=== PATIENT | female | born 1990 | race Caucasian/White ===

== ENCOUNTER → 2016-12-10 | Outpatient (REF) | payer BC, OTHER | LOC: M LAB REF 09:45 | PROVIDERS: ATTEND Physician Assistant Medical | DX: J02.9 Acute pharyngitis, unspecified (principal) ==

== ENCOUNTER → 2017-04-02 | Outpatient (REF) | payer BC, OTHER | LOC: M LAB REF 09:00 | DX: K52.9 Noninfective gastroenteritis and colitis, unspecified (principal) ==

== ENCOUNTER 2017-08-15 14:11 | Emergency (ER) | payer BC, OTHER ==
[~2017-08-15] VITALS: Ht 160 cm; Wt 69.1 kg
[2017-08-15 14:11] VITALS: BP 119/76
[2017-08-15] MEDS ORDERED: MEDR1VL IM (14:23)
[2017-08-15] MEDS ORDERED: IBUP-1022 PO (15:13)
[2017-08-15] MEDS ORDERED: CYCL10TA PO (15:13)
[2017-08-15] MEDS ORDERED: IBUPROFEN 800 MG TAB PO ONE (15:15)
== END 2017-08-15 15:31 | disposition home or self-care (01) ==
LOC: M ED 14:11
DX: S39.012A Strain of muscle, fascia and tendon of lower back, initial encounter (principal); X50.1XXA Overexertion from prolonged static or awkward postures, initial encounter; Y92.9 Unspecified place or not applicable; Y93.9 Activity, unspecified; Y99.0 Civilian activity done for income or pay; F17.200 Nicotine dependence, unspecified, uncomplicated; Z79.3 Long term (current) use of hormonal contraceptives

== ENCOUNTER → 2017-08-24 | Outpatient (REF) | payer BC ==
[~2017-08-24] MED LIST: CYCL10TA PO; IBUP-1022 PO; MEDR1VL IM
== END ==
LOC: M LAB REF 11:50
PROVIDERS: ATTEND Physician Assistant
DX: J06.9 Acute upper respiratory infection, unspecified (principal)

== ENCOUNTER 2018-04-02 18:58 | Emergency (ER) | payer MEDICAID, BC, SELFPAY ==
[2018-04-02] MEDS: ONDANSETRON 4MG/2ML VIAL (J2405) IV (19:30)
[2018-04-02] MEDS: NS 1,000 ML IV (19:30)
[2018-04-02] MEDS: MORPHINE 4 MG/ML 1ML VIAL/SYRINGE (J2270) IV (19:30)
[2018-04-02 19:33] LABS: HEMOGLOBIN 15.2 g/dl (12.0-15.5); MEAN CORPUSCULAR HEMOGLOBIN 31.1 pg (27.0-33.0); MEAN CORPUSCULAR HGB CONC 34.5 g/dl (32.0-36.5); PLATELET COUNT, AUTOMATED 397 10^3/uL (150-450); RED BLOOD COUNT 4.89 10^6/uL (4.00-5.40); WHITE BLOOD COUNT 14.3 10^3/uL (4.0-10.0)
[2018-04-02 19:38] LABS: ADD MANUAL DIFFER YES; DIFF SLIDE NUMBER 377; POSITIVE DIFF POS FLAG
[2018-04-02 19:53] LABS: CONTROL LINE HCG INT CTR LINE PRESENT; HCG, SERUM QUALITATIVE NEGATIVE (NEGATIVE)
[2018-04-02] MEDS: KETOROLAC 30 MG/ML VIAL (J1885) IV (19:53)
[2018-04-02 19:56] LABS: ALBUMIN 4.5 GM/DL (3.2-5.2); ALBUMIN/GLOBULIN RATIO 1.29 (1.00-1.93); ALKALINE PHOSPHATASE 89 U/L (45-117); ALT/SGPT 26 U/L (12-78); ANION GAP 8 MEQ/L (8-16); AST/SGOT 19 U/L (7-37); BILIRUBIN,DIRECT 0.2 MG/DL (0.0-0.2); BILIRUBIN,TOTAL 0.8 MG/DL (0.2-1.0); BLOOD UREA NITROGEN 11 MG/DL (7-18); CALCIUM LEVEL 9.9 MG/DL (8.5-10.1); CARBON DIOXIDE LEVEL 23 MEQ/L (21-32); CHLORIDE LEVEL 112 MEQ/L (98-107); CREATININE FOR GFR 1.14 MG/DL (0.55-1.30); GLOMERULAR FILTRATION RATE > 60.0 (>60); GLUCOSE, FASTING 93 MG/DL (70-100); LIPASE 92 U/L (73-393); SODIUM LEVEL 143 MEQ/L (136-145)
[2018-04-02 20:05] LABS: ATYPICAL LYMPH 2 % (0-5); EOSINOPHILS 2 % (0-5); LYMPHOCYTES 25 % (16-52); MONOCYTES 7 % (0-8); NEUTROPHILS 64 % (35-75)
[2018-04-02 20:06] LABS: PLATELET ESTIMATE NORMAL (NORMAL)
[2018-04-02 22:08] LABS: AMORPHOUS SEDIMENT RFX MODERATE (NEGATIVE); KETONE, URINE AUTO RFX 2+ mg/dL (NEGATIVE); LEUKOCYTE ESTERASE UR AUTO RFX NEGATIVE (NEGATIVE); MUCUS, URINE RFX MODERATE (NEGATIVE); NITRITE, URINE AUTO RFX NEGATIVE (NEGATIVE); RBC, URINE AUTO RFX 5 /HPF (0-3); SPECIFIC GRAVITY UR AUTO RFX 1.032 (1.002-1.035); SQUAM EPITHELIAL CELL UR AURFX 11 /HPF (0-6); WBC, URINE AUTO RFX 4 /HPF (0-3)
[2018-04-02] MEDS: CIPROFLOXACIN 500 MG TAB PO (22:22)
== END 2018-04-02 22:26 | disposition home or self-care (01) ==
LOC: M ED 18:58
DX: N30.01 Acute cystitis with hematuria (principal); N23 Unspecified renal colic; N13.30 Unspecified hydronephrosis; F17.210 Nicotine dependence, cigarettes, uncomplicated; Z88.8 Allergy status to other drugs, medicaments and biological substances; Z88.5 Allergy status to narcotic agent
CPT/HCPCS: J2270

== ENCOUNTER → 2019-01-08 | Outpatient (REF) | payer OTHER ==
[~2019-01-08] MED LIST changes: +CIPR-249 PO
[2019-01-08 16:39] LABS: INFLUENZA A AMPLIFICATION NEGATIVE (NEGATIVE); INFLUENZA B AMPLIFICATION NEGATIVE (NEGATIVE)
== END ==
LOC: M LAB REF 15:31
PROVIDERS: ATTEND Physician Assistant
DX: J11.1 Influenza due to unidentified influenza virus with other respiratory manifestations (principal)

== ENCOUNTER 2019-03-24 17:04 | Emergency (ER) | payer OTHER ==
[~2019-03-24] VITALS: Ht 160 cm; Wt 73.7 kg
[2019-03-24 21:07] VITALS: BP 123/91
[2019-03-24 22:14] LABS: CHLAMYDIA DNA AMPLIFICATION NEGATIVE (NEGATIVE); GC DNA AMPLIFICATION NEGATIVE (NEGATIVE)
== END 2019-03-24 21:20 | disposition home or self-care (01) ==
LOC: M ED 17:04
DX: N76.5 Ulceration of vagina (principal); Z86.19 Personal history of other infectious and parasitic diseases; Z87.59 Personal history of other complications of pregnancy, childbirth and the puerperium; J45.909 Unspecified asthma, uncomplicated; Z87.440 Personal history of urinary (tract) infections; Z87.442 Personal history of urinary calculi; Z87.448 Personal history of other diseases of urinary system; Z72.0 Tobacco use; F12.10 Cannabis abuse, uncomplicated; Z79.4 Long term (current) use of insulin; Z79.899 Other long term (current) drug therapy; Z88.5 Allergy status to narcotic agent; Z88.6 Allergy status to analgesic agent

== ENCOUNTER → 2019-04-22 | Outpatient (REF) | payer BC ==
[2019-04-22 20:25] LABS: AMORPHOUS SEDIMENT LARGE (NEGATIVE); APPEARANCE, URINE TURBID (CLEAR); BACTERIA, URINE AUTO NEGATIVE (NEGATIVE); BILIRUBIN, URINE AUTO NEGATIVE (NEGATIVE); BLOOD, URINE BLOOD NEGATIVE (NEGATIVE); COLOR, URINE YELLOW (YELLOW); GLUCOSE, URINE (UA) AUTO NEGATIVE (NEGATIVE); KETONE, URINE AUTO NEGATIVE (NEGATIVE); LEUKOCYTE ESTERASE, URINE AUTO NEGATIVE (NEGATIVE); MUCUS, URINE SMALL (NEGATIVE); NITRITE, URINE AUTO NEGATIVE (NEGATIVE); PROTEIN, URINE AUTO NEGATIVE (NEGATIVE); RBC, URINE AUTO 0 /HPF (0-3); SPECIFIC GRAVITY URINE AUTO 1.031 (1.002-1.035); SQUAMOUS EPITHELIAL CELL UR AU 6 /HPF (0-6); UROBILINOGEN, URINE AUTO 0.2 mg/dL (0.0-2.0); WBC, URINE AUTO 5 /HPF (0-3)
== END ==
LOC: M LAB REF 16:48
PROVIDERS: ATTEND Nurse Practitioner Family
DX: Z13.9 Encounter for screening, unspecified (principal)

== ENCOUNTER → 2019-04-22 | Outpatient (REF) | payer BC ==
[2019-04-22 18:14] LABS: BASO # 0.1 10^3/uL (0.0-0.2); BASO % 0.7 % (0.0-1.0); EOS # 0.2 10^3/uL (0.0-0.50); EOS % 2.3 % (0.0-3.0); HEMATOCRIT 47.9 % (36.0-47.0); HEMOGLOBIN 15.9 g/dl (12.0-15.5); LYMPH # 2.7 10^3/uL (1.5-6.5); LYMPH % 35.6 % (24.0-44.0); MEAN CORPUSCULAR HEMOGLOBIN 31.1 pg (27.0-33.0); MEAN CORPUSCULAR HGB CONC 33.2 g/dl (32.0-36.5); MEAN CORPUSCULAR VOLUME 93.6 fl (80.0-96.0); MONO # 0.6 10^3/uL (0.0-0.8); MONO % 7.6 % (0.0-5.0); NEUTROPHILS % 53.4 % (36.0-66.0); PLATELET COUNT, AUTOMATED 393 10^3/uL (150-450); RED BLOOD COUNT 5.12 10^6/uL (4.00-5.40); WHITE BLOOD COUNT 7.5 10^3/uL (4.0-10.0)
[2019-04-22 18:25] LABS: ALBUMIN 3.9 GM/DL (3.2-5.2); ALT/SGPT 33 U/L (12-78); BILIRUBIN,TOTAL 0.6 MG/DL (0.2-1.0); BLOOD UREA NITROGEN 10 MG/DL (7-18); CALCIUM LEVEL 9.9 MG/DL (8.5-10.1); CARBON DIOXIDE LEVEL 27 MEQ/L (21-32); CHLORIDE LEVEL 109 MEQ/L (98-107); CHOLESTEROL LEVEL 126 MG/DL (<200); CHOLESTEROL RISK RATIO 2.135 (<5); CREATININE FOR GFR 0.95 MG/DL (0.55-1.30); GLOMERULAR FILTRATION RATE > 60.0 (>60); GLUCOSE, FASTING 82 MG/DL (70-100); HDL CHOLESTEROL 59 MG/DL (>40); LDL CHOLESTEROL 56 MG/DL (<100); NON-HDL-C 67 MG/DL; POTASSIUM SERUM 4.1 MEQ/L (3.5-5.1); SODIUM LEVEL 141 MEQ/L (136-145); TOTAL 25(OH) VITAMIN D 24.2 NG/ML (30.0-100.0); TOTAL PROTEIN 7.6 GM/DL (6.4-8.2); TRIGLYCERIDES LEVEL 56 MG/DL (<150)
[2019-04-22 19:02] LABS: HEMOGLOBIN A1c 5.2 %
== END ==
LOC: M LAB REF 17:25
PROVIDERS: ATTEND Nurse Practitioner Family
DX: Z13.9 Encounter for screening, unspecified (principal)

== ENCOUNTER 2019-06-11 16:39 | Emergency (ER) | payer BC ==
[~2019-06-11] VITALS: Ht 160 cm; Wt 73.7 kg
[2019-06-11] MEDS ORDERED: BUPR150T3 (16:48)
[2019-06-11] MEDS ORDERED: NS 1,000 ML IV ONE (17:30)
[2019-06-11] MEDS ORDERED: KETOROLAC 30 MG/ML VIAL (J1885) IV ONE (17:30)
[2019-06-11] MEDS ORDERED: ONDANSETRON 4MG/2ML VIAL (J2405) IV ONE (17:30)
[2019-06-11 17:46] LABS: BASO # 0.1 10^3/uL (0.0-0.2); BASO % 0.5 % (0.0-1.0); EOS # 0.2 10^3/uL (0.0-0.50); EOS % 2.6 % (0.0-3.0); HEMATOCRIT 41.4 % (36.0-47.0); HEMOGLOBIN 13.9 g/dl (12.0-15.5); LYMPH # 3.3 10^3/uL (1.5-6.5); LYMPH % 36.3 % (24.0-44.0); MEAN CORPUSCULAR HEMOGLOBIN 30.1 pg (27.0-33.0); MEAN CORPUSCULAR HGB CONC 33.6 g/dl (32.0-36.5); MEAN CORPUSCULAR VOLUME 89.6 fl (80.0-96.0); MONO # 0.6 10^3/uL (0.0-0.8); MONO % 6.4 % (0.0-5.0); NEUTROPHILS # 4.9 10^3/uL (1.8-7.7); NEUTROPHILS % 53.9 % (36.0-66.0); PLATELET COUNT, AUTOMATED 415 10^3/uL (150-450); RED BLOOD COUNT 4.62 10^6/uL (4.00-5.40); WHITE BLOOD COUNT 9.1 10^3/uL (4.0-10.0)
[2019-06-11 18:09] LABS: ALBUMIN 3.9 GM/DL (3.2-5.2); ALT/SGPT 28 U/L (12-78); BILIRUBIN,DIRECT < 0.1 MG/DL (0.0-0.2); BILIRUBIN,TOTAL 0.2 MG/DL (0.2-1.0); LIPASE 102 U/L (73-393); TOTAL PROTEIN 7.6 GM/DL (6.4-8.2)
[2019-06-11] MEDS ORDERED: ISOVUE-370 76% 100ML VIAL (Q9967) As Ordered ONE (18:43)
--- NOTE | 2019-06-11 19:19 | REPVR ---
EXAM: CT Abdomen and Pelvis With Contrast EXAM DATE/TIME: 06/11/2019 6:54 PM CLINICAL HISTORY: 29 years old, female; Abdominal pain; Additional info: Right abd pain TECHNIQUE: Imaging protocol: Axial computed tomography images of the abdomen and pelvis with intravenous contrast. Coronal and sagittal reformatted images were created and reviewed. Radiation optimization: All CT scans at this facility use at least one of these dose optimization techniques: automated exposure control; mA and/or kV adjustment per patient size (includes targeted exams where dose is matched to clinical indication); or iterative reconstruction. Contrast material: ISO 370;Contrast volume: 100 ml;Contrast route: IV; COMPARISON: CT ABD PELVIS W/O CONTRAST 04/02/2018 8:08 PM FINDINGS: Liver: Unremarkable. No mass. Gallbladder and bile ducts: Unremarkable. No calcified stones. No ductal dilation. Pancreas: Unremarkable. No ductal dilation. Spleen: Unremarkable. No splenomegaly. Adrenals: Normal. No mass. Kidneys and ureters: Unremarkable. No stones. No hydronephrosis. Stomach and bowel: Mild colonic diverticulosis is present. There are inflammatory changes within the fat adjacent to a diverticulum within the ascending colon on axial images 68 through 76 of series 201 consistent with acute diverticulitis. The stomach and small bowel have normal appearances. Appendix: The appendix is normal. Intraperitoneal space: Unremarkable. No free air. No significant fluid collection. Vasculature: Unremarkable. No abdominal aortic aneurysm. Lymph nodes: Unremarkable. No enlarged lymph nodes. Bladder: Unremarkable as visualized. Reproductive: Unremarkable as visualized. Bones/joints: No acute fracture. Soft tissues: Unremarkable. IMPRESSION: Mild acute diverticulitis of the ascending colon. Electronically signed by: Saúl Bowles On 06/11/2019 19:19:45 PM
[2019-06-11] MEDS ORDERED: FLAG500T PO (19:37)
[2019-06-11] MEDS ORDERED: CIPR-249 PO (19:37)
[2019-06-11] MEDS ORDERED: CIPROFLOXACIN 500 MG TAB PO ONE (19:45)
[2019-06-11] MEDS ORDERED: metroNIDAZOLE (FLAGYL) 500 MG TAB PO ONE (19:45)
[2019-06-11 19:58] VITALS: BP 146/88
== END 2019-06-11 20:04 | disposition home or self-care (01) ==
LOC: M ED 16:39
DX: K57.32 Diverticulitis of large intestine without perforation or abscess without bleeding (principal); R11.2 Nausea with vomiting, unspecified; M54.9 Dorsalgia, unspecified; Z87.442 Personal history of urinary calculi; Z88.5 Allergy status to narcotic agent; Z88.6 Allergy status to analgesic agent; F17.210 Nicotine dependence, cigarettes, uncomplicated; Z79.899 Other long term (current) drug therapy
CPT/HCPCS: 74177; 80047; 80076; 81001; 83690; 84702; 85025; 96374; 96375; 99284; J1885; J2405; Q9967

== ENCOUNTER → 2019-08-13 | Outpatient (REF) | payer BC ==
[~2019-08-13] MED LIST changes: +BUPR150T3; +FLAG500T PO
[2019-08-16 14:07] LABS: HPV HYBRID CAPTURE II Negative (Negative)
== END ==
LOC: M SFHCADAM 13:35
PROVIDERS: ATTEND Physician Assistant
DX: Z12.4 Encounter for screening for malignant neoplasm of cervix (principal); R87.610 Atypical squamous cells of undetermined significance on cytologic smear of cervix (ASC-US)

== ENCOUNTER → 2019-12-16 | Outpatient (CLI) | payer BC ==
--- NOTE | 2019-12-16 11:17 | REPPI ---
Clinical: Dyspnea . Comparison: 02/06/2011 . Technique: PA and lateral. Findings: The mediastinum and cardiac silhouette are normal. The lung virk are clear and without acute consolidation, effusion, or pneumothorax. The skeletal structures are intact and normal. Impression: 1. No acute cardiopulmonary process. Electronically Signed by Gurvinder Crump MD 12/16/2019 11:08 A
== END ==
LOC: M PLAIMG 09:06
PROVIDERS: ATTEND Nurse Practitioner Family
DX: R06.00 Dyspnea, unspecified (principal)

== ENCOUNTER → 2020-01-05 | Outpatient (REF) | payer BC ==
[~2020-01-05] MED LIST changes: +ALBU83IN INH; +EFFE75CA2 PO; +MULTCAP PO; +PROAAER10 INH; +TRAM50TA2 PO; +ZOFR4TAB16 PO
[2020-01-05 13:54] LABS: ALBUMIN 4.4 GM/DL (3.2-5.2); ALT/SGPT 20 U/L (12-78); BILIRUBIN,TOTAL 0.7 MG/DL (0.2-1.0); BLOOD UREA NITROGEN 9 MG/DL (7-18); CARBON DIOXIDE LEVEL 29 MEQ/L (21-32); CHLORIDE LEVEL 106 MEQ/L (98-107); GLOMERULAR FILTRATION RATE > 60.0 (>60); GLUCOSE, FASTING 76 MG/DL (70-100); POTASSIUM SERUM 4.2 MEQ/L (3.5-5.1); SODIUM LEVEL 139 MEQ/L (136-145); TOTAL PROTEIN 7.5 GM/DL (6.4-8.2)
[2020-01-05 13:55] LABS: BASO % 0.3 % (0.0-1.0); EOS # 0.1 10^3/uL (0.0-0.5); EOS % 0.6 % (0.0-3.0); HEMATOCRIT 44.9 % (36.0-47.0); HEMOGLOBIN 14.8 g/dl (12.0-15.5); LYMPH # 3.1 10^3/uL (1.5-5.0); LYMPH % 25.8 % (24.0-44.0); MEAN CORPUSCULAR HEMOGLOBIN 30.7 pg (27.0-33.0); MEAN CORPUSCULAR VOLUME 93.2 fl (80.0-96.0); MONO # 0.6 10^3/uL (0.0-0.8); NEUTROPHILS # 8.2 10^3/uL (1.5-8.5); PLATELET COUNT, AUTOMATED 406 10^3/uL (150-450); RED BLOOD COUNT 4.82 10^6/uL (4.00-5.40)
== END ==
LOC: M SFHCADAM 11:45
PROVIDERS: ATTEND Family Medicine
DX: Z01.818 Encounter for other preprocedural examination (principal)

== ENCOUNTER 2020-01-06 05:47 | Observation (INO) | payer BC ==
[~2020-01-06] VITALS: Ht 157.5 cm; Wt 67.1 kg
[2020-01-06] VITALS (9 sets, daily range): BP systolic 110–135; BP diastolic 63–74
[~2020-01-06 05:47] MED LIST changes: -TRAM50TA2 PO; -ZOFR4TAB16 PO
[2020-01-06] MEDS ORDERED: LIDOCAINE 1% MDV 20ML VIAL SQ PRN (06:00)
[2020-01-06] MEDS ORDERED: fentaNYL 250 MCG/5 ML INJECTION (J3010) As Ordered ONE (07:12)
[2020-01-06] MEDS ORDERED: dexameTHASONE 4 MG/ML 1ML VIAL (J1100) As Ordered ONE (07:13)
[2020-01-06] MEDS ORDERED: propofoL 200 MG/20 ML VIAL As Ordered ONE ×3 (07:13→09:22)
[2020-01-06] MEDS ORDERED: ONDANSETRON 4MG/2ML VIAL (J2405) As Ordered ONE (07:13)
[2020-01-06] MEDS ORDERED: ROCURONIUM BROMIDE 50 MG/5 ML VIAL As Ordered ONE ×2 (07:13→08:08)
[2020-01-06] MEDS ORDERED: LIDOCAINE 2% INJ 100 MG/5 ML SDV (FOR ANES.) As Ordered ONE (07:13)
[2020-01-06] MEDS ORDERED: MIDAZOLAM INJ 2 MG/2 ML VIAL (J2250) As Ordered ONE (07:13)
[2020-01-06] MEDS ORDERED: BUPIVACAINE LIPOSOME/PF 1.3% 20ML VIAL (13.3MG/ML)(EXPAREL)(C9290 PER1MG) As Ordered ONE (07:19)
[2020-01-06] MEDS ORDERED: BACITRACIN PWD 50,000 UNITS VIAL As Ordered ONE (07:19)
[2020-01-06] MEDS ORDERED: ceFAZolin SOD 1 GM in D5W MINI-BAG PLUS 50 ML IV ONE (07:30)
[2020-01-06] MEDS ORDERED: LR 1,000 ML IV ONE (07:30)
[2020-01-06] MEDS ORDERED: ceFAZolin 1GM INJ (J0690 PER 500MG) As Ordered ONE (07:47)
[2020-01-06] MEDS ORDERED: HYDROmorphone HCL 2 MG/ML 1ML VIAL (J1170) As Ordered ONE (08:08)
[2020-01-06] MEDS ORDERED: ePHEDrine SULFATE 25 MG/5 ML(5MG/ML) SYRINGE As Ordered ONE (08:08)
[2020-01-06] MEDS ORDERED: PHENYLephrine HCL 500 MCG/5 ML (100MCG/ML) SYRINGE (J2370) As Ordered ONE (08:08)
[2020-01-06] MEDS ORDERED: KETAMINE HCL 200 MG/20 ML VIAL As Ordered ONE (08:19)
[2020-01-06] MEDS ORDERED: GLYCOPYRROLATE INJ 0.2 MG/ML 2 ML VIAL As Ordered ONE (08:29)
[2020-01-06] MEDS ORDERED: SUGAMMADEX SODIUM 500 MG/5 ML VIAL (BRIDION) As Ordered ONE (10:22)
--- NOTE | 2020-01-06 11:27 | POST-OPPD ---
Postoperative Procedure Note Date Of Procedure: Jan 06, 2020 PREOPERATIVE DIAGNOSIS: Bilateral breast hypertrophy POSTOPERATIVE DIAGNOSIS: same FINDINGS: Large breasts PROCEDURE: Bilateral breast reduction SURGEON: Dr Best CARDIOVASCULAR RN: Dr Turner ANESTHESIA: General SPECIMENS: Right breast 503 gm, Left breast 619 gm ESTIMATED BLOOD LOSS: 75cc REPLACED: none DRAINS: 10 mm MOUNIKA drains x 2 COMPLICATIONS: none POSTOPERATIVE CONDITION: stable BRANT BEST DO Jan 06, 2020 11:27
[2020-01-06] MEDS ORDERED: ALBUTEROL 90 MCG/ACT 8GM HFA INHALER INH PRN ×2 (11:45→14:07)
[2020-01-06] MEDS ORDERED: fentaNYL 100 MCG/2 ML INJECTION (J3010) IV PRN ×2 (12:00→13:45)
[2020-01-06] MEDS ORDERED: oxyCODONE 5MG TAB PO PRN ×2 (12:00→13:45)
[2020-01-06] MEDS ORDERED: LR 1,000 ML IV SCH ×2 (12:00→13:45)
[2020-01-06] MEDS ORDERED: HYDROMORPHONE HCL 0.5 MG/ 0.5 ML SYRINGE (J1170 PER 1) IV PRN ×2 (12:00→13:45)
[2020-01-06] MEDS ORDERED: ONDANSETRON 4MG/2ML VIAL (J2405) IV PRN ×2 (12:00→13:45)
--- NOTE | 2020-01-06 12:29 | ROOPDOC ---
[facility] Report Of Operation Report of Operation DATE OF PROCEDURE: 01/06/2020 PREOPERATIVE DIAGNOSIS: Symptomatic macromastia. POSTOPERATIVE DIAGNOSIS: Symptomatic macromastia. PROCEDURE: Bilateral breast reduction. ATTENDING SURGEON: Tuyet Best DO ANESTHESIA: General. FINDINGS: Large breasts. SPECIMEN: Right breast 503 grams, left breast 619 grams. BLOOD LOSS: 75 mL. DRAIN: 10 mm Addi-Herrera x 2. COMPLICATIONS: No complications. POST OP CONDITION: Stable. DISPOSITION: Recovery room. DESCRIPTION OF PROCEDURE: This is a 29-year-old female who has large breasts, which cause a patient significant upper back and neck pain. She has failed medical management with support bras and medications. The patient is a good candidate for surgical breast reduction. All the risks and benefits and alternatives discussed with the patient at [facility]. Risks associated with this procedure include but not limited to: bleeding, infection, delayed healing, damage of surrounding structures, asymmetry, tissue loss, nipple areolar loss/change of sensation, inability to breast feed, inacceptable cosmetic results, DVT, and PE. The day of surgery, she was marked according to Superior - medial pedicle pattern in the upright position in preoperative holding area. Her measurements from sternal notch on Left side is 33-1/2 cm and on the Right side it is to 33- 1/2 cm from sternal notch and her new position for the nipple areola complex is going to be at 22 cm bilaterally. After the markings an informed consent was confirmed. The patient was brought into the operating room, placed in supine position. Preoperative antibiotics were given. Sequential pneumatic stockings were placed on her lower calves. General anesthesia was induced. She was prepped and draped in the usual sterile fashion. We started our procedure on the right side. We outlined the nipple areolar complex at 42 mm in diameter. Incision was carried out around the nipple areolar complex and along the markings according the superior -medial pedicle pattern. PEAK cautery and electrocautery were used for resection of the inferolateral portion of the breast. Hemostasis was obtained using electrocautery as well. Specimen sent off to be weight. After that part of procedure completed, the wound was irrigated with Bacitracin saline solution. The pedicle was de- epithelialized using Thakkar scissors. Exparel was infiltrated in breast parenchyma and Pectoralis major totaling 7 ml. Then, the pedicle was turned superiorly to its new location. The breast mound was recreated. #0 Vicryl sutures were used to secure the mound. The side pillars were closed with inte rrupted #3-0 Monocryl sutures. The vertical limb is 8 cm. Inferior excess tissue was measured and resected creating the inferior horizontal scar. A 10 mm Addi-Herrera drain was placed through the lateral portion of that incision and sutured in place with #3-0 Monocryl suture. Horizontal scar was closed with interrupted #3-0 Monocryl sutures. Nipple areolar complex was brought out into view through the new opening. We used interrupted #3-0 Monocryl, #4-0 Monocryl sutures to close it in layers and a #5-0 Plain Gut running stitch for dermis. Total dissection on the right side was 503 grams. Additional suction assisted lipectomy done at the upper outer quadrant, totalling 50 cc to even out the contour. Exparel added to the skin, 3 cc. Then, we turned our attention to the left side. A mirrored procedure was recreated. We outlined the nipple areolar complex at 42 mm in diameter. Incision was carried out around the nipple areolar complex and along the markings according the superior -medial pedicle pattern. P EAK cautery and electrocautery were used for resection of the inferolateral portion of the breast. Hemostasis was obtained using electrocautery as well. Specimen sent off to be weight. After that part of procedure completed, the wound was irrigated with Bacitracin saline solution. The pedicle was de- epithelialized using Thakkar scissors. Exparel was infiltrated in breast parenchyma and Pectoralis major totaling 7 ml. Then, the pedicle was turned superiorly to its new location. The breast mound was recreated. #0 Vicryl sutures were used to secure the mound. The side pillars were closed with interrupted #3-0 Monocryl sutures. The vertical limb is 8 cm. Inferior excess tissue was measured and resected creating the inferior horizontal scar. A 10 mm Addi-Herrera drain was placed through the lateral portion of that incision and sutured in place with #3-0 Monocryl suture. Horizontal scar was closed with interrupted #3-0 Monocryl sutures. Nipple areolar complex was brought out into view through the new opening. We used interrupted #3-0 Monocryl, #4-0 Monocryl sutures to close it in layers and a #5-0 Plain Gut running stitch for dermis. Total dissection on the right side was 619 grams. Additional suction assisted lipectomy done at the upper outer quadrant, totalli ng 50 cc to even out the contour. Exparel added to the skin, 3 cc. Prineo dressing, Xeroform to the nipple areolar complex, bulky dressing and a surgical bra the patient was extubated in operating room without any difficulty, transferred to the recovery room in stable condition. TUYET BEST DO Jan 06, 2020 12:29
[2020-01-06] MEDS: traMADol 50 MG TAB PO PRN ×2 (12:30→23:46)
[2020-01-06] MEDS ORDERED: METOCLOPRAMIDE INJ 10MG/2ML VIAL (J2765) As Ordered ONE (13:39)
[2020-01-06] MEDS ORDERED: METOCLOPRAMIDE INJ 10MG/2ML VIAL (J2765) IV PRN (13:45)
[2020-01-06] MEDS: LR 1,000 ML IV SCH (15:37)
[2020-01-06] MEDS: VENLAFAXINE **XR** 75MG CAPSULE PO SCH (15:53)
[2020-01-06] MEDS: KETOROLAC TROMETHAMINE 10 MG TAB PO PRN (18:05)
[2020-01-06] MEDS: ONDANSETRON 4MG/2ML VIAL (J2405) IV PRN ×2 (19:13→23:46)
[2020-01-07 02:09] VITALS: BP 111/74
[2020-01-07] MEDS: LR 1,000 ML IV SCH (02:11)
[2020-01-07] MEDS: KETOROLAC TROMETHAMINE 10 MG TAB PO PRN ×2 (02:12→10:05)
[2020-01-07 05:33] VITALS: BP 105/54
[2020-01-07 07:55] VITALS: BP 138/64
[2020-01-07] MEDS ORDERED: traMADol 50 MG TAB PO PRN (08:00)
[2020-01-07] MEDS: VENLAFAXINE **XR** 75MG CAPSULE PO SCH (09:40)
[2020-01-07] MEDS: ONDANSETRON 4MG/2ML VIAL (J2405) IV PRN (10:02)
[2020-01-07] MEDS: traMADol 50 MG TAB PO PRN (10:02)
--- NOTE | 2020-01-07 11:37 | IPNPDOC ---
Subjective General Date Seen: Jan 07, 2020 Subject Chief Complaint/History The patient is a 29-year-old female admitted with a reason for visit of Bilateral Breast Hypertrophy. S/p BBR POD 1. Doing well. Pain controlled with Tramadol, but with nausea. Using Zofran. No other complains. Current Medications Current Medications Current Medications Medications (Trade) Dose Ordered Sig/Kwame Route PRN Reason Start Time Stop Time Status Last Admin Dose Admin Albuterol Sulfate (Proventil, Ventolin Hfa) 2 puff Q4HP PRN INH SHORTNESS OF BREATH 01/06/20 11:45 01/06/20 14:07 DC Albuterol Sulfate (Proventil, Ventolin Hfa) 2 puff RQ4H PRN INH SHORTNESS OF BREATH 01/06/20 14:07 Fentanyl Citrate (Sublimaze) 25 mcg Q5MP PRN IV PAIN LEVEL 5-10 01/06/20 12:00 01/06/20 13:00 DC Fentanyl Citrate (Sublimaze) 25 mcg Q5MP PRN IV PAIN LEVEL 5-10 01/06/20 13:45 01/06/20 14:45 DC Hydromorphone HCl (Dilaudid) 0.2 mg Q5MP PRN IV PAIN LEVEL 4-7 01/06/20 12:00 01/06/20 13:00 DC Hydromorphone HCl (Dilaudid) 0.2 mg Q5MP PRN IV PAIN LEVEL 4-7 01/06/20 13:45 01/06/20 14:45 DC Ketorolac Tromethamine (ToRADol) 10 mg Q6HP PRN PO MODERATE PAIN (PS 5-7) 01/06/20 11:30 01/11/20 11:29 01/07/20 10:05 Lactated Ringer's 1,000 ml @ 75 mls/hr [id number] IV 01/06/20 11:28 01/07/20 02:11 Lactated Ringer's 1,000 ml @ 100 mls/hr Q10H IV 01/06/20 12:00 01/06/20 13:00 DC Lactated Ringer's 1,000 ml @ 100 mls/hr Q10H IV 01/06/20 13:45 01/06/20 14:45 DC Lidocaine HCl (LIDOCAINE 1% MDV 20ml) 0.1 ml ONCE PRN SQ DISCOMFORT BEFORE IV START 01/06/20 06:00 01/06/20 11:59 DC Metoclopramide HCl (REGLAN INJection) 10 mg Q6HP PRN IV NAUSEA OR VOMITING 01/06/20 13:45 01/06/20 14:45 DC 01/06/20 13:40 Ondansetron HCl (ZOFRAN INJection) 4 mg Q4H PRN IV NAUSEA OR VOMITING 01/06/20 11:30 01/07/20 10:02 Ondansetron HCl (ZOFRAN INJection) 4 mg Q4HP PRN IV NAUSEA OR VOMITING 01/06/20 12:00 01/06/20 13:00 DC 01/06/20 12:01 Ondansetron HCl (ZOFRAN INJection) 4 mg Q4HP PRN IV NAUSEA OR VOMITING 01/06/20 13:45 01/06/20 14:45 DC Oxycodone HCl (Roxicodone, Oxyir) 5 mg ASDIRECTED PRN PO PAIN LEVEL 1-4 01/06/20 12:00 01/06/20 13:00 DC Oxycodone HCl (Roxicodone, Oxyir) 5 mg ASDIRECTED PRN PO PAIN LEVEL 1-4 01/06/20 13:45 01/06/20 14:45 DC Tramadol HCl (Ultram) 50 mg Q6HP PRN PO MODERATE PAIN (PS 5-7) 01/06/20 11:45 01/07/20 10:02 Tramadol HCl (Ultram) 100 mg Q6HP PRN PO SEVERE PAIN (PS 8-10) 01/07/20 08:00 Venlafaxine HCl (Effexor Xr) 75 mg DAILY PO 01/06/20 09:00 01/07/20 09:40 Allergies Coded Allergies: acetaminophen (Verified Adverse Reaction, Intermediate, HEART PALPITATIONS; CHEST PAINS, 12/29/19) hydrocodone (Verified Adverse Reaction, Intermediate, HEART PALPITATIONS; CHEST PAINS, 12/29/19) Objective Physical Examination Examination GENERAL APPEARANCE:Patient seen, laying in bed, awake, alert, and oriented. Comfortable, in no acute distress. SKIN: Warm and moist. BREAST: Right and left soft, non-tender incisions intact. MOUNIKA drains: R15/L25 cc/24 hr. NAC: Viable, warm, symmetrical, mild post-op ecchymosis, no expanding hematoma. LUNGS: Clear to auscultation bilaterally. No wheezing appreciated. HEART: No chest wall abnormalities. Regular rate and rhythm with no murmurs appreciated. ABDOMEN: Abdomen is soft, non-tender, non-distended. EXTREMITIES: No edema identified. No calf tenderness. Vital Signs Vital Signs Date Time Temp Pulse Resp B/P (MAP) Pulse Ox O2 Delivery O2 Flow Rate FiO2 01/07/20 11:00 18 01/07/20 07:55 97.9 91 138/64 (88) 98 Room Air 01/06/20 12:30 3 I&Os I&O- Last 24 Hours up to 6 AM 01/07/20 06:00 Intake Total 2680 ml Output Total 268 ml Balance 2412 ml Impression S/p Breast reduction POD 1. Stable for discharge. Monitor drains at home No heavy lifting. F/up plastic surgery Sunday. Instructions given to patient. Plan / VTE VTE Prophylaxis Ordered?: Yes BRANT BEST DO Jan 07, 2020 11:37
[2020-01-07] MEDS ORDERED: TRAM50TA2 PO (11:44)
[2020-01-07] MEDS ORDERED: ZOFR4TAB16 PO (11:44)
== END 2020-01-07 13:00 | disposition home or self-care (01) ==
LOC: M SDC 05:47 → M MS5PR 11:28
PROVIDERS: ADMIT Plastic Surgery Surgery of the Hand; ATTEND Plastic Surgery Surgery of the Hand
DX: N62 Hypertrophy of breast (principal); J45.909 Unspecified asthma, uncomplicated; F17.218 Nicotine dependence, cigarettes, with other nicotine-induced disorders; Z88.5 Allergy status to narcotic agent; Z88.8 Allergy status to other drugs, medicaments and biological substances; Z79.899 Other long term (current) drug therapy
CPT/HCPCS: 19318; 81025; 88305; 96374; 96376; C9290; J0690; J1100; J1170; J2250; J2370; J2405; J2765; J3010

== ENCOUNTER → 2020-02-17 | Outpatient (CLI) | payer BC ==
[~2020-02-17] MED LIST changes: +CYCL-707 PO; -CYCL10TA PO; +METHACHOLINE KIT (J7674) INH ONE; +TRAM50TA2 PO; +ZOFR4TAB16 PO
--- NOTE | 2020-02-17 15:18 | PFTRPT ---
Height: 62.00 Inches Weight: 151.00 Lbs BSA: 1.70 Diagnosis: R05 DATE OF PROCEDURE: 02/17/2020 ORDERED BY: Stephanie Flores INTERPRETATION: Study of excellent technical quality. Under protocol, methacholine was administered. At a dose of 0.25 mg or 1.375 CDUs, a 22% decline in the FEV1 was noted. PC of 0.14 is significant. Flow rates did return to baseline post bronchodilator administration. IMPRESSION: Positive methacholine challenge study. MTDD
== END ==
LOC: M CARPUL 14:41
PROVIDERS: ATTEND Nurse Practitioner Family
DX: R05 Cough (principal)
CPT/HCPCS: 94070; 95070; J7674

== ENCOUNTER → 2020-06-22 | Outpatient (REF) | payer BC ==
[~2020-06-22] MED LIST changes: -METHACHOLINE KIT (J7674) INH ONE
== END ==
LOC: M LAB REF 11:02
PROVIDERS: ATTEND Physician Assistant
DX: R42 Dizziness and giddiness (principal)

== ENCOUNTER → 2022-02-17 | Outpatient (REF) | payer BC ==
[~2022-02-17] MED LIST changes: +BUPR150T12; -BUPR150T3
== END ==
LOC: M LAB REF 13:44
PROVIDERS: ATTEND Physician Assistant
DX: R50.9 Fever, unspecified (principal); R05.9 Cough, unspecified

== ENCOUNTER → 2022-07-19 | Outpatient (REF) | payer BC ==
[~2022-07-19] MED LIST changes: +ALBU2.5V10 INH; -ALBU83IN INH
== END ==
LOC: M LAB REF 15:56
PROVIDERS: ATTEND Physician Assistant
DX: M79.10 Myalgia, unspecified site (principal)

== ENCOUNTER → 2022-10-20 | Outpatient (REF) | payer BC ==
[2022-10-20 17:58] LABS: BASO # 0.1 10^3/uL (0.0-0.2); BASO % 0.7 % (0.0-1.0); EOS # 0.2 10^3/uL (0.0-0.5); EOS % 2.4 % (0.0-3.0); HEMATOCRIT 44.4 % (36.0-47.0); HEMOGLOBIN 14.4 g/dl (12.0-15.5); LYMPH # 2.6 10^3/uL (1.5-5.0); LYMPH % 36.1 % (24.0-44.0); MEAN CORPUSCULAR HEMOGLOBIN 29.3 pg (27.0-33.0); MEAN CORPUSCULAR HGB CONC 32.4 g/dl (32.0-36.5); MEAN CORPUSCULAR VOLUME 90.4 fl (80.0-96.0); MONO # 0.5 10^3/uL (0.0-0.8); MONO % 7.1 % (2.0-8.0); NEUTROPHILS # 3.9 10^3/uL (1.5-8.5); NEUTROPHILS % 53.4 % (36.0-66.0); PLATELET COUNT, AUTOMATED 374 10^3/uL (150-450); RED BLOOD COUNT 4.91 10^6/uL (4.00-5.40); WHITE BLOOD COUNT 7.2 10^3/uL (4.0-10.0)
[2022-10-20 18:46] LABS: FREE T4 0.98 NG/DL (0.89-1.76); THYROID STIMULATING HORMONE 2.665 uIU/ML (0.55-4.78)
[2022-10-20 18:51] LABS: HEPATITIS B SURFACE ANTIBODY NEGATIVE (POSITIVE)
[2022-10-23 16:08] LABS: HERPES ZOSTER, VARICELLA IgG 2152 index (Immune >165); RUBEOLA IgG ANTIBODY <13.5 AU/mL (Immune >16.4)
== END ==
LOC: M LAB REF 17:10
PROVIDERS: ATTEND Nurse Practitioner Family
DX: Z02.1 Encounter for pre-employment examination (principal); E04.1 Nontoxic single thyroid nodule

== ENCOUNTER → 2022-10-31 | Outpatient (REF) | payer BC ==
[2022-10-31 17:53] LABS: BASO # 0.1 10^3/uL (0.0-0.2); BASO % 0.8 % (0.0-1.0); EOS # 0.2 10^3/uL (0.0-0.5); HEMATOCRIT 46.2 % (36.0-47.0); HEMOGLOBIN 14.8 g/dl (12.0-15.5); LYMPH # 3.4 10^3/uL (1.5-5.0); LYMPH % 39.9 % (24.0-44.0); MEAN CORPUSCULAR VOLUME 90.6 fl (80.0-96.0); MONO # 0.6 10^3/uL (0.0-0.8); MONO % 6.6 % (2.0-8.0); NEUTROPHILS # 4.4 10^3/uL (1.5-8.5); NEUTROPHILS % 50.4 % (36.0-66.0); PLATELET COUNT, AUTOMATED 450 10^3/uL (150-450); WHITE BLOOD COUNT 8.6 10^3/uL (4.0-10.0)
[2022-10-31 18:22] LABS: BLOOD UREA NITROGEN 12 MG/DL (9-23); CALCIUM LEVEL 9.6 MG/DL (8.5-10.1); CARBON DIOXIDE LEVEL 28 MMOL/L (20-31); CHLORIDE LEVEL 105 MMOL/L (98-107); CREATININE FOR GFR 0.77 MG/DL (0.55-1.30); GLOMERULAR FILTRATION RATE > 60.0 (>60); GLUCOSE, FASTING 77 MG/DL (60-100); SODIUM LEVEL 140 MMOL/L (136-145)
[2022-10-31 18:33] LABS: HCG, SERUM QUALITATIVE NEGATIVE (NEGATIVE)
== END ==
LOC: M LAB REF 17:17
PROVIDERS: ATTEND Nurse Practitioner Family
DX: R11.2 Nausea with vomiting, unspecified (principal)

== ENCOUNTER → 2022-11-01 | Outpatient (REF) | payer BC | LOC: M LAB REF 09:40 | PROVIDERS: ATTEND Nurse Practitioner Family | DX: R19.7 Diarrhea, unspecified (principal) ==

== ENCOUNTER → 2022-11-02 | Outpatient (CLI) | payer BC | LOC: M WHC 09:39 | PROVIDERS: ATTEND Nurse Practitioner Family | DX: Z12.31 Encounter for screening mammogram for malignant neoplasm of breast (principal); Z80.3 Family history of malignant neoplasm of breast ==

== ENCOUNTER → 2022-11-23 | Outpatient (CLI) | payer BC | LOC: M WHC 08:14 | PROVIDERS: ATTEND Nurse Practitioner Family | DX: R92.8 Other abnormal and inconclusive findings on diagnostic imaging of breast (principal); N63.13 Unspecified lump in the right breast, lower outer quadrant; N63.11 Unspecified lump in the right breast, upper outer quadrant; N63.22 Unspecified lump in the left breast, upper inner quadrant ==

== ENCOUNTER → 2023-05-10 | Outpatient (REF) | payer BC | LOC: M LAB REF 16:19 | PROVIDERS: ATTEND Physician Assistant | DX: M25.50 Pain in unspecified joint (principal) ==

== ENCOUNTER → 2023-09-14 | Outpatient (REF) | payer BC | LOC: M LAB REF 11:40 | PROVIDERS: ATTEND Nurse Practitioner Family | DX: J02.9 Acute pharyngitis, unspecified (principal) ==

== ENCOUNTER 2023-12-04 12:28 | Outpatient (RCR) | payer BC | END 2023-12-05 | LOC: M PT 12:28 | PROVIDERS: ATTEND Physician Assistant | DX: H92.01 Otalgia, right ear (principal) ==

== ENCOUNTER 2023-12-27 08:13 | Outpatient (RCR) | payer BC | END 2024-01-03 | LOC: M PT 08:13 | PROVIDERS: ATTEND Physician Assistant | DX: H92.01 Otalgia, right ear (principal) ==

== ENCOUNTER 2024-01-04 08:11 | Outpatient (RCR) | payer BC | END 2024-02-03 | LOC: M PT 08:11 | PROVIDERS: ATTEND Physician Assistant | DX: H92.01 Otalgia, right ear (principal) ==

== ENCOUNTER → 2024-01-18 | Outpatient (CLI) | payer BC | LOC: M PLAIMG 14:00 | PROVIDERS: ATTEND Physician Assistant | DX: H92.01 Otalgia, right ear (principal); H70.93 Unspecified mastoiditis, bilateral ==

== ENCOUNTER → 2024-04-28 | Outpatient (REF) | payer BC ==
[2024-04-28 14:20] LABS: Trichomonas vaginalis (AMP) NOT DETECTED (NEGATIVE)
[2024-04-28 14:43] LABS: GC DNA AMPLIFICATION NEGATIVE (NEGATIVE)
== END ==
LOC: M LAB REF 11:24
PROVIDERS: ATTEND Nurse Practitioner Family
DX: N89.8 Other specified noninflammatory disorders of vagina (principal); R30.0 Dysuria; Z11.3 Encounter for screening for infections with a predominantly sexual mode of transmission

== ENCOUNTER 2024-05-05 07:31 | Emergency (ER) | payer BC ==
[~2024-05-05] VITALS: Ht 160 cm; Wt 57.9 kg
[2024-05-05] MEDS ORDERED: AMOX500C PO (09:10)
[2024-05-05] MEDS ORDERED: ONDA-282 PO (09:12)
[2024-05-05] MEDS: ONDANSETRON 4MG ORAL DISINTEGRATING TAB PO ONE (09:33)
[2024-05-05] MEDS: IBUPROFEN 600MG TAB PO ONE (09:34)
[2024-05-05] MEDS: dexAMETHasone 4 MG TAB PO ONE (09:34)
[2024-05-05 09:44] VITALS: BP 115/68; TEMP 98.5; O2SAT 98
== END 2024-05-05 09:51 | disposition home or self-care (01) ==
LOC: M ED 07:31
DX: J02.0 Streptococcal pharyngitis (principal); J45.909 Unspecified asthma, uncomplicated; F32.A Depression, unspecified; F17.200 Nicotine dependence, unspecified, uncomplicated; Z88.5 Allergy status to narcotic agent; Z88.6 Allergy status to analgesic agent; Z79.52 Long term (current) use of systemic steroids; Z79.2 Long term (current) use of antibiotics; Z79.83 Long term (current) use of bisphosphonates; Z79.1 Long term (current) use of non-steroidal anti-inflammatories (NSAID)